=== PATIENT | male | born 1955 | race Caucasian/White ===

== ENCOUNTER 2018-06-23 10:46 | Emergency (ER) | payer MEDICAID ==
[~2018-06-23] VITALS: Ht 177.8 cm; Wt 120.5 kg
[2018-06-23 10:49] VITALS: Ht 177.8 cm; Wt 120.5 kg
[2018-06-23] MEDS ORDERED: ZYLOPRIM100 MG PO (10:52)
[2018-06-23] MEDS ORDERED: XARELTO20 MG PO (10:52)
[2018-06-23] MEDS ORDERED: PACERONE200 MG (10:52)
[2018-06-23] MEDS ORDERED: PRAVACHOL20 MG ×2 (10:53→10:55)
[2018-06-23] MEDS ORDERED: MULTI-DAY VITAM1 TAB PO (10:53)
[2018-06-23] MEDS ORDERED: LISINOPRIL2.5 MG PO (10:53)
[2018-06-23] MEDS ORDERED: ISOSORBIDE MONO60 M1 PO (10:54)
[2018-06-23] MEDS ORDERED: MILK OF MAGNESI30 ML PO (10:54)
[2018-06-23] MEDS ORDERED: PLAVIX75 MG PO (10:55)
[2018-06-23] MEDS ORDERED: METOPROLOL TART25 MG PO (10:55)
[2018-06-23] MEDS ORDERED: XALATAN 0.0052.5 ML RIGHT EYE (10:56)
[2018-06-23 11:19] LABS: BASOPHILS 0.3 % (0-2); EOSINOPHILS 0.6 % (0-7); HEMATOCRIT 41.4 % (42.0-54.0); HEMOGLOBIN 14.1 g/dL (13.5-17.5); IMMATURE GRANULOCYTES 0.4 % (0-5); LYMPHOCYTES 17.1 % (15-50); MCH 33.6 pg (26.0-34.0); MCHC 34.1 g/dL (31.0-37.0); MCV 98.6 fL (80.0-100.0); MONOCYTES 6.2 % (2-11); NEUTROPHILS 75.4 % (40-80); PLATELET COUNT 181 10x3/uL (130-400); RDW 13.3 % (11.5-14.5); WBC 7.1 10x3/uL (4.8-10.8)
[2018-06-23 11:28] LABS: INR 1.67 (0.85-1.17); PROTIME 19.1 SECONDS (11.6-15.0)
[2018-06-23 11:35] LABS: ALBUMIN 3.5 g/dL (3.4-5.0); ALKALINE PHOSPHATASE 39 U/L (46-116); ALT (SGPT) 34 U/L (10-68); BILIRUBIN - TOTAL 0.57 mg/dL (0.2-1.3); CALC OSMOLALITY 282 mosm/kg (275-300); CALCIUM 8.9 mg/dL (8.5-10.1); CARBON DIOXIDE 29.1 mmol/L (21.0-32.0); CHLORIDE - SERUM 103 mmol/L (98-107); GLUCOSE 105 mg/dL (74-106); POTASSIUM - SERUM 4.2 mmol/L (3.5-5.1); SODIUM 140 mmol/L (136-145); UREA NITROGEN 24 mg/dL (7-18); eGFR NON AFRICAN AMERICAN 80 mL/min (90-120)
[2018-06-23 11:44] LABS: CKMB 2.3 U/L (0.0-3.6); CREATINE KINASE 126 UL (21-232); MAGNESIUM - SERUM 1.9 mg/dL (1.8-2.4); PRO BNP 196 pg/mL (0-125); TROPONIN-I < 0.017 ng/mL (0.000-0.060)
[2018-06-23 14:18] VITALS: BP 119/71
== END 2018-06-23 14:19 ==
LOC: D.ER 10:46
PROVIDERS: Emergency Medicine
DX: R53.1 Weakness (principal); Z86.79 Personal history of other diseases of the circulatory system